=== PATIENT | female | born 1965 | race African-American/Black ===

== ENCOUNTER 2017-04-27 08:38 | Emergency (ER) | payer OTHER ==
[~2017-04-27] VITALS: Ht 160 cm; Wt 107.0 kg
--- NOTE | 2017-04-27 08:46 | NUR ---
ROLDAN FROM HOME FOR TONIC CLONIC SEIZURE X 4 MINUTES APPROX. PATIENT IS A/OX 3 AT THIS TIME. BREATHING EVEN AND UNLABORED ON ROOM AIR. NO SOB, NAD, VITALS STABLE. SAFETY AND COMFORT MEASURES IN PLACE. AWAITING MD ORDERS.
[2017-04-27] MEDS ORDERED: LEVETIRACETAM (500MG) 500 MG in IV NS 0.9% 100 ML IV SCH (09:00)
--- NOTE | 2017-04-27 09:10 | NUR ---
NEW IV STARTED ON RFA, 20 G.
--- NOTE | 2017-04-27 09:10 | NUR ---
MEDICATED PATIENT PER MD ORDERS.
[2017-04-27] MEDS ORDERED: ACETAMINOPHEN ES 500 MG TABLET ONE (09:14)
[2017-04-27] MEDS ORDERED: ACETAMINOPHEN ES 500 MG TABLET PO ONE (09:30)
[2017-04-27 10:05] VITALS: BP 169/81
--- NOTE | 2017-04-27 10:06 | NUR ---
IV removed. Catheter intact and site benign. Pressure and 4x4 applied to site. No bleeding noted. Patient discharged to home in stable condition. Written and verbal after care instructions given. Patient verbalizes understanding of instruction.
--- NOTE | 2017-04-27 14:25 | NUR ---
Pt. was brought into the ER for tonic clonic seizure x4 minute approximately. ER called and connected SW with seda Santos ([phone]) who requested a means of transportation for her aunt. SW asked [facility] Court Registry Officer Maria Luisa for taxi voucher for pt. to go back home ([place] La: [id number] [facility], [place] [address]). SW arranged for the patient to be picked up by taxi. Patient agreeable with the plan and was discharged via taxi.
== END 2017-04-27 10:05 | disposition home or self-care (01) ==
LOC: EDBD 08:39 → ER 08:39
DX: G40.909 Epilepsy, unspecified, not intractable, without status epilepticus (principal); I10 Essential (primary) hypertension; E66.01 Morbid (severe) obesity due to excess calories; Z88.0 Allergy status to penicillin
CPT/HCPCS: 96365; 99284; A4606; J1953; J7030; Z7610